=== PATIENT | male | born 1935 | race Caucasian/White ===

== ENCOUNTER → 2016-08-13 | Outpatient (CLI) | payer MEDICARE, BC ==
[~2016-08-13] MED LIST: ASPIR-LOW81 MG PO; CORDARONE 200M200 MG PO; COREG 3.125M3.125 MG PO; CRESTOR20 MG PO; ISOSORBIDE MONO30 MG PO; LISINOPRIL5 MG PO; NITROSTAT 0.40.4 MG SL; PLAVIX 75 MG TA75 MG PO; PROTONIX40 MG PO
== END ==
LOC: HEART 5 09:13
DX: R06.02 Shortness of breath (principal); Z79.899 Other long term (current) drug therapy; F17.210 Nicotine dependence, cigarettes, uncomplicated; R94.2 Abnormal results of pulmonary function studies
CPT/HCPCS: 94060; 94729